=== PATIENT | female | born 1960 | race Two or more races ===

== ENCOUNTER 2022-09-04 09:24 | Outpatient (CLI) | payer OTHER | END 2022-09-04 09:30 | disposition home or self-care (01) | LOC: SONOGRAMA 09:24 | PROVIDERS: ATTEND Pathology Anatomic Pathology & Clinical Pathology | DX: D44.0 Neoplasm of uncertain behavior of thyroid gland (principal); D34 Benign neoplasm of thyroid gland; E06.3 Autoimmune thyroiditis; E07.9 Disorder of thyroid, unspecified ==

== ENCOUNTER 2023-02-16 09:45 | Outpatient (CLI) | payer OTHER | END 2023-02-16 09:48 | disposition home or self-care (01) | LOC: SONOGRAMA 09:45 | PROVIDERS: ATTEND Pathology Anatomic Pathology & Clinical Pathology | DX: D44.0 Neoplasm of uncertain behavior of thyroid gland (principal); E07.9 Disorder of thyroid, unspecified ==